=== PATIENT | female | born 1960 | race American Indian/Alaskan Native ===

== ENCOUNTER 2018-07-07 07:30 | Inpatient (IN) | payer BC, MEDICARE ==
[2018-06-04 08:49] VITALS: BMI 50.5
[2018-07-07] MEDS ORDERED: Bupivacaine Liposomal Inj 20 ml INFIL ONE (09:31)
[2018-07-07] MEDS ORDERED: ceFAZolin 1 gm in NS 2 GM/200 ML BAG IVPB ONE (09:38)
[2018-07-07] MEDS ORDERED: Midazolam 2 MG/2 ML VIAL ONE (10:09)
[2018-07-07] MEDS ORDERED: Propofol 10 mg/ml Inj (20 ML) ONE (10:09)
[2018-07-07] MEDS ORDERED: Succinylcholine Chloride 20 mg/ml Syr (5 ml) IV ONE (10:10)
[2018-07-07] MEDS ORDERED: Rocuronium 10 mg/ml (10 ml) ONE ×2 (10:44→13:07)
[2018-07-07] MEDS ORDERED: Sodium Chloride 0.9% 60 ML IV ONE (10:54)
[2018-07-07] MEDS ORDERED: Phenylephrine 10 mg/ml Inj ONE (11:03)
[2018-07-07] MEDS: Bacitracin 150,000 UNIT in Sodium Chloride 0.9% Irrig 3,000 ML IR SCH ×3 (11:15→12:23)
[2018-07-07] MEDS ORDERED: Labetalol 5mg/ml (4ml) ONE (11:25)
[2018-07-07 12:15] LABS: FLUID TYPE SYNOVIAL FLUID
[2018-07-07] MEDS ORDERED: Neostigmine Methylsulfate 3mg/3ml Syringe IV ONE ×2 (13:44→14:12)
[2018-07-07 13:52] LABS: SF GROSS APPEARANCE BLOODY (CLEAR)
[2018-07-07 13:53] LABS: SYNOVIAL FLUID MONO/MACROPHAGE 4 % (0-0)
[2018-07-07] MEDS ORDERED: Sodium Chloride 0.9% 1,000 ML IV SCH (14:30)
[2018-07-07] MEDS ORDERED: HYDROmorphone 1 mg/ml ISec IVP PRN (14:30)
[2018-07-07] MEDS: HYDROmorphone 0.5 mg/0.5 ml ISec IVP PRN ×2 (14:45→15:00)
--- NOTE | 2018-07-07 14:46 | PCM.SURG1 ---
Surgeon's Initial Post Op Note - Surgeon's Notes Surgeon: Otilia Renteria MD Clerical Car Checker: Alexis Ferrari PA-C Type of Anesthesia: General Endo Anesthesia Administered By: Dr. Payton Pre-Operative Diagnosis: right knee DJD Operative Findings: tourniquet 135@300mmHg. +DP/PT pulses pre and post op Post-Operative Diagnosis: same Operation Performed: right total knee replacement. synovetomy Specimen/Specimens Removed: synovium. synovial fluid Estimated Blood Loss: EBL {In ML}: 100 Blood Products Given: N/A Drains Used: Hemovac Post-Op Condition: Fair Date of Surgery/Procedure: 07/07/18 Time of Surgery/Procedure: 14:46
[2018-07-07] MEDS ORDERED: Bupivacaine 0.25% 20 ML INJ IJ ONE (14:56)
--- NOTE | 2018-07-07 15:46 | PCM.ANESB3 ---
Femoral Nerve Block - Femoral Nerve Block Date of Procedure: 07/07/18 Anesthesiologist: alana Pre-Procedure Diagnosis: right knee total replacement Post-Procedure Diagnosis: same Procedure Performed: Femoral Nerve Block Right - Procedure Femoral Nerve Block: The procedure was explained to the patient that it is for the post-operative pain management. Consent was obtained after a thorough discussion with the patient regarding the benefits and possible complications of local anesthetic block of the femoral nerve at the inguinal crease area. The patient was brought to the operating room and standard monitors were applied. Time-out was held with the circulating nurse to confirm the correct surgery and the appropriate block. After applying oxygen by nasal cannula and administering IV Sedation, patient was placed in supine position with fully extended lower extremities and the __right groin exposed. The femoral artery was then carefully palpated. The ultrasound transducer was then applied to this area in the transverse plane and the femoral nerve was visualized lateral to the femoral artery and underneath the fascia iliaca. After thorough identification, the inguinal crease area was prepped with Betadine solution three times and 1 % Lidocaine was injected subcutaneously for topical anesthesia. At this point, a #22 gauge Stimuplex 2-inch needle was inserted immediately lateral to the femoral artery pulse at the inguinal crease and advanced perpendicularly. The needle was inserted to the ultrasound transducer in-plane towards the femoral nerve in a [id number] direction. Needle advancement was performed carefully under direct ultrasound visualization. Nerve stimulator was used and twitch of the quadriceps muscle was obtained at current of __0.5___MA. After negative aspiration, __5___cc of _0.25____% __Bupivacaine was injected and this was followed with _15 cc of ___0.25____ % ___Bupivacaine . Under ultrasound guidance the local anesthetics were observed spreading below fascia iliaca and around the femoral nerve. The needle was removed intact and sterile dressing was applied. The patient had stable vital signs, was conscious and in no apparent distress. The patient tolerated the femoral nerve block well with stable vital signs and was prepared for subsequent surgery.
--- NOTE | 2018-07-07 16:15 | RAD ---
Indication: pt in pacu s/p TKR Comparison: Bilateral knee radiographs performed 05/05/18 Two views, right knee radiographs Findings: The patient is status post right knee total arthroplasty. Alignment appears satisfactory. Soft tissue swelling, subcutaneous emphysema, drainage catheter, and surgical esteban compatible with recent postoperative history Impression: Status post right arthroplasty as above.
--- NOTE | 2018-07-07 17:01 | RAD ---
Indication: repeat lateral Comparison: Right knee radiographs performed earlier the same day. Right knee radiographs Findings: The patient is status post right knee total arthroplasty. Alignment appears satisfactory. Soft tissue swelling, subcutaneous emphysema, drainage catheter, and surgical esteban compatible with recent postoperative history Impression: Status post right arthroplasty as above.
[2018-07-07 17:38] VITALS: RESP 20
--- NOTE | 2018-07-07 18:21 | CT ---
Date of service: 07/07/2018 PROCEDURE: CT of the right knee without contrast HISTORY: right knee: s/p TKR COMPARISON: Comparison is made with the previous x-ray done on the same day. TECHNIQUE: Axial and reformatted coronal and sagittal CT images of the right knee were obtained without contrast administration. 3D reformatted images were also obtained. FINDINGS: The patient is status post total right knee replacement. The hardware are seen at appropriate position. Postsurgical changes are noted. There is small amount of air around the right knee and proximal right tibia likely represent postsurgical changes. No evidence of acute fracture. No evidence of dislocation. No evidence of fluid collection or joint effusion. IMPRESSION: Status post total right knee replacement.
[2018-07-07 20:14] LABS: HEMOGLOBIN 10.6 g/dL (11.0-16.0); MEAN CELL VOLUME 88.7 fL (81.0-99.0); MEAN CORPUSCULAR HEMOGLOBIN 28.5 pg (27.0-31.0); MEAN CORPUSCULAR HGB CONC 32.1 g/dL (33.0-37.0); MEAN PLATELET VOLUME 10.1 fL (7.2-11.7); RBC 3.73 Mil/uL (3.80-5.20); RED CELL DISTRIBUTION WIDTH 14.5 % (11.5-14.5); WHITE BLOOD COUNT 15.4 K/uL (4.8-10.8)
[2018-07-07] MEDS ORDERED: ceFAZolin IV 2 gm in Dextrose 2 GM/50 ML BAG IVPB SCH (20:30)
--- NOTE | 2018-07-07 21:40 | CP.PCM.CON ---
Past Patient History - Past Medical History & Family History Past Medical History?: Yes - Past Social History Smoking Status: Never Smoked - CARDIAC Hx Cardiac Disorders: Yes Hx Hypercholesterolemia: Yes Hx Hypertension: Yes - PULMONARY Hx Respiratory Disorders: Yes Hx Sleep Apnea: Yes (CPAP) - NEUROLOGICAL Hx Neurological Disorder: Yes Other/Comment: HX: FREQUENT HEADACHES - HEENT Hx HEENT Problems: No - RENAL Hx Chronic Kidney Disease: No - ENDOCRINE/METABOLIC Hx Endocrine Disorders: No - HEMATOLOGICAL/ONCOLOGICAL Hx Blood Disorders: No - INTEGUMENTARY Hx Dermatological Problems: Yes Other/Comment: HX: CYST ON RIGHT WRIST - MUSCULOSKELETAL/RHEUMATOLOGICAL Hx Musculoskeletal Disorders: Yes Hx Back Pain: Yes Hx Degenerative Joint Disease: Yes Hx Falls: Yes Hx Osteoarthritis: Yes Hx Osteoporosis: Yes Other/Comment: HX: CARPAL TUNNEL BILAT. - GASTROINTESTINAL Hx Gastrointestinal Disorders: Yes - GENITOURINARY/GYNECOLOGICAL Hx Genitourinary Disorders: Yes Other/Comment: HX: URINARY FREQUENCY. HX: FIBROID UTERUS - PSYCHIATRIC Hx Psychophysiologic Disorder: Yes Hx Anxiety: Yes (.) Hx Substance Use: No - SURGICAL HISTORY Hx Surgeries: Yes Hx Hysterectomy: Yes (PARTIAL HYSTERECTOMY) Other/Comment: HX: CYST REMOVED RIGHT WRIST - ANESTHESIA Hx Anesthesia: Yes Hx Malignant Hyperthermia: No Has any member of the family had a problem w/ anesthesia?: No Meds Allergies/Adverse Reactions: Allergies Allergy/AdvReac Type Severity Reaction Status Date / Time No Known Allergies Allergy Verified 06/04/18 08:49 - Medications Medications: Current Medications Acetaminophen (Tylenol 325mg Tab) 650 mg PO Q4 PRN PRN Reason: Fever 101 degrees fahrenheit Docusate Sodium (Colace) 100 mg PO BID [facility] Last Admin: 07/07/18 19:24 Dose: 100 mg Enoxaparin Sodium (Lovenox) 40 mg SC Q24H [facility] Ergocalciferol (Drisdol 50,000 Intl Units Cap) 1 cap PO QWK [facility] Famotidine (Pepcid) 20 mg PO BID [facility] Last Admin: 07/07/18 19:00 Dose: 20 mg Ferrous Sulfate (Feosol) 325 mg PO DAILY [facility] Hydromorphone HCl (Dilaudid) 1 mg IVP Q4H PRN PRN Reason: Pain, severe (8-10) Lactated Ringer's (Lactated Ringer's) 1,000 mls @ 100 mls/hr IV .Q10H [facility] Sodium Chloride (Sodium Chloride 0.9%) 1,000 mls @ 80 mls/hr IV .[id number] [facility] Stop: 07/08/18 15:29 Cefazolin Sodium 2 gm/ Sodium (Chloride) 100 mls @ 100 mls/hr IVPB Q8H [facility]; Protocol Losartan Potassium (Cozaar) 100 mg PO DAILY [facility] Multivitamins (Hexavitamin) 1 tab PO DAILY [facility] Ondansetron HCl (Zofran Inj) 4 mg IVP Q6H PRN PRN Reason: Nausea/Vomiting Oxybutynin Chloride (Ditropan Xl) 10 mg PO DAILY [facility] Oxycodone/Acetaminophen (Percocet 5/325 Mg Tab) 2 tab PO Q4H PRN PRN Reason: Pain, severe (8-10) Stop: 07/10/18 14:31 Pneumococcal Polyvalent Vaccine (Pneumovax 23 Vaccine) 0.5 ml IM .ONCE ONE Stop: 07/08/18 10:01 Vitamin B Complex/Folic Acid (Berroca) 1 tab PO DAILY [facility] Results - Vital Signs Recent Vital Signs: Last Vital Signs Temp 97.6 F 07/07/18 17:37 Pulse 90 07/07/18 17:37 Resp 20 07/07/18 17:37 BP 152/80 H 07/07/18 17:37 Pulse Ox 100 07/07/18 17:37 - Labs Result Diagrams: 07/07/18 20:10 Labs: Laboratory Results - last 24 hr 07/07/18 07/07/18 07/07/18 09:19 12:12 20:10 WBC 15.4 H D RBC 3.73 L Hgb 10.6 L Hct 33.1 L MCV 88.7 MCH 28.5 MCHC 32.1 L RDW 14.5 Plt Count 327 MPV 10.1 Fluid Type Synovial fluid Synovial WBC 3396.0 H Synovial RBC 7489678.0 H Synovial Neutrophils 47.0 H Synovial Lymphocytes 49.0 H Synov Monos/Macrophage 4 H Synovial Fluid Comment TEST NOT PERFORMED Blood Type A POSITIVE Antibody Screen Negative
[2018-07-07] MEDS: ceFAZolin 2 GM in Sodium Chloride 0.9% 100 ML IVPB SCH (22:10)
[2018-07-08] MEDS: Oxycodone/Acetaminophen 5/325 mg Tab PO PRN ×5 (00:14→21:22)
[2018-07-08] MEDS: ceFAZolin 2 GM in Sodium Chloride 0.9% 100 ML IVPB SCH ×3 (04:41→21:15)
[2018-07-08] MEDS: Lactated Ringer's 1,000 ML IV SCH ×3 (04:55→07:54)
--- NOTE | 2018-07-08 06:21 | CON ---
DATE: 07/07/2018 CHIEF COMPLAINT: Osteoarthritis of right knee, medical management for hypertension. HISTORY OF PRESENT ILLNESS: This is a 58-year-old female, well known to me with a history of morbid obesity, hypertension, hyperlipidemia, osteoarthritis of bilateral knees and hips who is compliant with diet, medication, and followup. The patient has severe bilateral knee pain, difficulty walking. She has been seen by Orthopedics with no improvement initially with intra-articular steroids and then intra-articular Synvisc. The patient did not improve and finally she underwent right knee surgery. She is postop. She is in the bed. She has mild pain. She is complaining of some sore throat. No cough. No fever. No chills. No nausea, vomiting, or diarrhea. She denies any polyuria, polydipsia, or polyphagia. She denies any hematuria or pyuria. She denies any sneezing, itchy eyes, or itchy nose. She denies any chest pain, palpitation, weakness, or dizziness. She denies any history of vertigo. There is no history of trauma, fall, or loss of consciousness. No seizure like activity. PAST MEDICAL HISTORY: Hypertension, osteoarthritis, morbid obesity, overactive bladder, gastritis. CURRENT MEDICATIONS: At home, she is on Avapro, Zantac, Ditropan XL, Mobic, multivitamin, vitamin D, iron. SOCIAL HISTORY: Nonsmoker, non-EtOH user. PHYSICAL EXAMINATION: GENERAL: An elderly female, in no acute distress. VITAL SIGNS: Postop BP 152/80, pulse 90, respiratory rate 20, temperature 97.6. SKIN: Warm. Good turgor. No bruises. No purpura. No petechia. No ecchymosis. HEENT: Atraumatic and normocephalic. Negative PERRLA. Negative jaundice. Extraocular movements are intact. NECK: Supple. No JVD. No lymph node. No thyromegaly. No carotid bruit. CHEST WALL: Bilateral symmetrical expansion. No tenderness. No deformity. LUNGS: Bilaterally clear. No rales. No rhonchi. CARDIOVASCULAR SYSTEM: PMI not localized. S1 and S2 are regular. ABDOMEN: Soft and nontender. Bowel sounds are positive. RECTAL AND PELVIC: Unable to do because of the patient's position. EXTREMITIES: Right knee surgery postop. CENTRAL NERVOUS SYSTEM: Awake, alert, and oriented x3. Cranial nerves II through XII are normal. ASSESSMENT: 1. Osteoarthritis. 2. Hypertension. 3. Gastritis. 4. Hyperlipidemia. PLAN: Continue postop care. BP control. Monitor the patient. Chino Weaver MD
[2018-07-08 09:37] LABS: MEAN CORPUSCULAR HEMOGLOBIN 29.7 pg (27.0-31.0); MEAN PLATELET VOLUME 9.6 fL (7.2-11.7); RBC 3.38 Mil/uL (3.80-5.20); RED CELL DISTRIBUTION WIDTH 14.4 % (11.5-14.5); WHITE BLOOD COUNT 11.2 K/uL (4.8-10.8)
[2018-07-08 09:52] LABS: BLOOD UREA NITROGEN 8 mg/dL (7-17); CALCIUM 8.4 mg/dl (8.6-10.4); GFR NON-AFRICAN AMERICAN > 60
[2018-07-08] MEDS ORDERED: Pneumococcal 23-Valent Vaccine IM ONE (10:00)
[2018-07-08] MEDS: Oxybutynin XL 10 mg Tab PO SCH (10:03)
[2018-07-08] MEDS: Multiple Vitamins Tab PO SCH (10:04)
--- NOTE | 2018-07-08 11:13 | CP.PCM.PN ---
Subjective - Date & Time of Evaluation Date of Evaluation: 07/08/18 Time of Evaluation: 11:11 - Subjective Subjective: Patient states pain is well controlled. Denies CP/SOB/dizziness. tingling in toes resolved. Denies n/v Objective - Vital Signs/Intake and Output Vital Signs (last 24 hours): Temp Pulse Resp BP Pulse Ox 98.7 F 86 20 160/98 H 96 07/08/18 08:57 07/08/18 10:03 07/08/18 08:57 07/08/18 10:03 07/08/18 08:57 Intake and Output: 07/08/18 07/08/18 06:59 18:59 Intake Total 360 Output Total 360 Balance 0 - Medications Medications: Current Medications Acetaminophen (Tylenol 325mg Tab) 650 mg PO Q4 PRN PRN Reason: Fever 101 degrees fahrenheit Docusate Sodium (Colace) 100 mg PO BID [facility] Last Admin: 07/08/18 10:04 Dose: 100 mg Enoxaparin Sodium (Lovenox) 40 mg SC Q24H [facility] Ergocalciferol (Drisdol 50,000 Intl Units Cap) 1 cap PO QWK [facility] Famotidine (Pepcid) 20 mg PO BID [facility] Last Admin: 07/08/18 10:04 Dose: 20 mg Ferrous Sulfate (Feosol) 325 mg PO DAILY [facility] Last Admin: 07/08/18 10:04 Dose: 325 mg Hydromorphone HCl (Dilaudid) 1 mg IVP Q4H PRN PRN Reason: Pain, severe (8-10) Cefazolin Sodium 2 gm/ Sodium (Chloride) 100 mls @ 100 mls/hr IVPB Q8H [facility]; Protocol Last Admin: 07/08/18 04:41 Dose: 100 mls/hr Losartan Potassium (Cozaar) 100 mg PO DAILY [facility] Last Admin: 07/08/18 10:04 Dose: 100 mg Multivitamins (Hexavitamin) 1 tab PO DAILY [facility] Last Admin: 07/08/18 10:04 Dose: 1 tab Ondansetron HCl (Zofran Inj) 4 mg IVP Q6H PRN PRN Reason: Nausea/Vomiting Oxybutynin Chloride (Ditropan Xl) 10 mg PO DAILY [facility] Last Admin: 07/08/18 10:03 Dose: 10 mg Oxycodone/Acetaminophen (Percocet 5/325 Mg Tab) 2 tab PO Q4H PRN PRN Reason: Pain, severe (8-10) Stop: 07/10/18 14:31 Last Admin: 07/08/18 05:41 Dose: 2 tab Vitamin B Complex/Folic Acid (Berroca) 1 tab PO DAILY [facility] Last Admin: 07/08/18 10:03 Dose: 1 tab - Labs Labs: 07/08/18 09:30 07/08/18 09:30 - Extremities Exam Additional comments: +ROM ankle/toes, sensation intact, +DP/PT pulses calves soft NT neg homans hemovac 60 Assessment and Plan (1) Primary osteoarthritis of right knee Assessment & Plan: POD#1 s/p right TKR PT/OT VTE proph d/c planning labs in am monitor HTN d/w Dr. Pinzon, agrees with above Status: Acute (2) Morbid obesity with BMI of 50.0-59.9, adult Status: Acute (3) Hypertension Status: Acute
[2018-07-08] MEDS: Enoxaparin 40 mg Syringe SC SCH (13:46)
--- NOTE | 2018-07-08 21:54 | CP.PCM.PN ---
Subjective - Subjective Subjective: dictated Objective - Vital Signs/Intake and Output Vital Signs (last 24 hours): Temp Pulse Resp BP Pulse Ox 98.9 F 82 20 155/85 H 97 07/08/18 15:54 07/08/18 15:54 07/08/18 15:54 07/08/18 15:54 07/08/18 15:54 Intake and Output: 07/08/18 07/09/18 18:59 06:59 Intake Total 450 Output Total 25 Balance 425 - Medications Medications: Current Medications Acetaminophen (Tylenol 325mg Tab) 650 mg PO Q4 PRN PRN Reason: Fever 101 degrees fahrenheit Docusate Sodium (Colace) 100 mg PO BID [facility] Last Admin: 07/08/18 17:32 Dose: 100 mg Enoxaparin Sodium (Lovenox) 40 mg SC Q24H [facility] Last Admin: 07/08/18 13:46 Dose: 40 mg Ergocalciferol (Drisdol 50,000 Intl Units Cap) 1 cap PO QWK [facility] Famotidine (Pepcid) 20 mg PO BID [facility] Last Admin: 07/08/18 17:32 Dose: 20 mg Ferrous Sulfate (Feosol) 325 mg PO DAILY [facility] Last Admin: 07/08/18 10:04 Dose: 325 mg Hydromorphone HCl (Dilaudid) 1 mg IVP Q4H PRN PRN Reason: Pain, severe (8-10) Cefazolin Sodium 2 gm/ Sodium (Chloride) 100 mls @ 100 mls/hr IVPB Q8H [facility]; Protocol Last Admin: 07/08/18 21:15 Dose: 100 mls/hr Losartan Potassium (Cozaar) 100 mg PO DAILY [facility] Last Admin: 07/08/18 10:04 Dose: 100 mg Multivitamins (Hexavitamin) 1 tab PO DAILY [facility] Last Admin: 07/08/18 10:04 Dose: 1 tab Ondansetron HCl (Zofran Inj) 4 mg IVP Q6H PRN PRN Reason: Nausea/Vomiting Oxybutynin Chloride (Ditropan Xl) 10 mg PO DAILY [facility] Last Admin: 07/08/18 10:03 Dose: 10 mg Oxycodone/Acetaminophen (Percocet 5/325 Mg Tab) 2 tab PO Q4H PRN PRN Reason: Pain, severe (8-10) Stop: 07/10/18 14:31 Last Admin: 07/08/18 21:22 Dose: 2 tab Vitamin B Complex/Folic Acid (Berroca) 1 tab PO DAILY [facility] Last Admin: 07/08/18 10:03 Dose: 1 tab - Labs Labs: 07/08/18 09:30 07/08/18 09:30
[2018-07-09] MEDS: Oxycodone/Acetaminophen 5/325 mg Tab PO PRN ×3 (04:59→14:28)
[2018-07-09] MEDS: ceFAZolin 2 GM in Sodium Chloride 0.9% 100 ML IVPB SCH ×2 (05:00→12:50)
[2018-07-09 07:54] LABS: HEMOGLOBIN 9.7 g/dL (11.0-16.0); MEAN CELL VOLUME 89.5 fL (81.0-99.0); MEAN CORPUSCULAR HGB CONC 33.5 g/dL (33.0-37.0); MEAN PLATELET VOLUME 8.8 fL (7.2-11.7); RBC 3.25 Mil/uL (3.80-5.20); RED CELL DISTRIBUTION WIDTH 14.3 % (11.5-14.5); WHITE BLOOD COUNT 11.3 K/uL (4.8-10.8)
[2018-07-09 08:07] VITALS: O2SAT 98
[2018-07-09 08:42] LABS: BLOOD UREA NITROGEN 6 mg/dL (7-17); CALCIUM 8.5 mg/dl (8.6-10.4); GFR NON-AFRICAN AMERICAN > 60
--- NOTE | 2018-07-09 10:29 | CP.PCM.PN ---
Subjective - Date & Time of Evaluation Date of Evaluation: 07/09/18 Time of Evaluation: 10:28 - Subjective Subjective: Patient states pain is controlled, denies CP/SOB/dizziness/numbness/tingling. Objective - Vital Signs/Intake and Output Vital Signs (last 24 hours): Temp Pulse Resp BP Pulse Ox 98.8 F 89 20 138/81 98 07/09/18 07:00 07/09/18 07:00 07/09/18 07:00 07/09/18 07:00 07/09/18 07:00 Intake and Output: 07/09/18 07/09/18 06:59 18:59 Intake Total 220 Balance 220 - Medications Medications: Current Medications Acetaminophen (Tylenol 325mg Tab) 650 mg PO Q4 PRN PRN Reason: Fever 101 degrees fahrenheit Docusate Sodium (Colace) 100 mg PO BID [facility] Last Admin: 07/08/18 17:32 Dose: 100 mg Enoxaparin Sodium (Lovenox) 40 mg SC Q24H [facility] Last Admin: 07/08/18 13:46 Dose: 40 mg Ergocalciferol (Drisdol 50,000 Intl Units Cap) 1 cap PO QWK [facility] Famotidine (Pepcid) 20 mg PO BID [facility] Last Admin: 07/08/18 17:32 Dose: 20 mg Ferrous Sulfate (Feosol) 325 mg PO DAILY [facility] Last Admin: 07/08/18 10:04 Dose: 325 mg Hydromorphone HCl (Dilaudid) 1 mg IVP Q4H PRN PRN Reason: Pain, severe (8-10) Cefazolin Sodium 2 gm/ Sodium (Chloride) 100 mls @ 100 mls/hr IVPB Q8H [facility]; Protocol Last Admin: 07/09/18 05:00 Dose: 100 mls/hr Losartan Potassium (Cozaar) 100 mg PO DAILY [facility] Last Admin: 07/08/18 10:04 Dose: 100 mg Multivitamins (Hexavitamin) 1 tab PO DAILY [facility] Last Admin: 07/08/18 10:04 Dose: 1 tab Ondansetron HCl (Zofran Inj) 4 mg IVP Q6H PRN PRN Reason: Nausea/Vomiting Oxybutynin Chloride (Ditropan Xl) 10 mg PO DAILY [facility] Last Admin: 07/08/18 10:03 Dose: 10 mg Oxycodone/Acetaminophen (Percocet 5/325 Mg Tab) 2 tab PO Q4H PRN PRN Reason: Pain, severe (8-10) Stop: 07/10/18 14:31 Last Admin: 07/09/18 09:33 Dose: 2 tab Vitamin B Complex/Folic Acid (Berroca) 1 tab PO DAILY [facility] Last Admin: 07/08/18 10:03 Dose: 1 tab - Labs Labs: 07/09/18 07:51 07/09/18 07:51 - Extremities Exam Additional comments: Right knee: drain pulled, incision intact, dry, no erythema, +ROM ankle/toes, calves soft NT neg homans Assessment and Plan (1) Primary osteoarthritis of right knee Assessment & Plan: POD#2 s/p right TKR for TCU transfer f/u vitamin D monitor h/h cont VTE proph cont PT/OT NWB RLE d/w Dr. Pinzon, agrees wtih above Status: Acute (2) Morbid obesity with BMI of 50.0-59.9, adult Status: Acute (3) Hypertension Status: Acute
[2018-07-09] MEDS: Multiple Vitamins Tab PO SCH (11:38)
[2018-07-09] MEDS: Oxybutynin XL 10 mg Tab PO SCH (11:43)
[2018-07-09] MEDS ORDERED: Influenza Vaccine 60 MCG/0.5 ML SYR (3 yr & up) IM ONE (12:00)
[2018-07-09] MEDS: Enoxaparin 40 mg Syringe SC SCH (14:08)
[2018-07-09 16:42] VITALS: BP 129/80; PULSE 92; TEMP 98.2
--- NOTE | 2018-07-09 16:56 | CP.PCM.PN ---
Subjective - Date & Time of Evaluation Date of Evaluation: 07/09/18 Time of Evaluation: 11:00 - Subjective Subjective: alert and orientedx3, out of bed on the chair, denies acute pain. Objective - Vital Signs/Intake and Output Vital Signs (last 24 hours): Temp Pulse Resp BP Pulse Ox 98.2 F 92 H 20 129/80 98 07/09/18 15:30 07/09/18 15:30 07/09/18 15:30 07/09/18 15:30 07/09/18 15:30 Intake and Output: 07/09/18 07/09/18 06:59 18:59 Intake Total 220 Balance 220 - Medications Medications: Current Medications Acetaminophen (Tylenol 325mg Tab) 650 mg PO Q4 PRN PRN Reason: Fever 101 degrees fahrenheit Docusate Sodium (Colace) 100 mg PO BID [facility] Last Admin: 07/09/18 11:38 Dose: 100 mg Enoxaparin Sodium (Lovenox) 40 mg SC Q24H [facility] Last Admin: 07/09/18 14:08 Dose: 40 mg Ergocalciferol (Drisdol 50,000 Intl Units Cap) 1 cap PO QWK [facility] Famotidine (Pepcid) 20 mg PO BID [facility] Last Admin: 07/09/18 11:38 Dose: 20 mg Ferrous Sulfate (Feosol) 325 mg PO DAILY [facility] Last Admin: 07/09/18 11:42 Dose: 325 mg Hydromorphone HCl (Dilaudid) 1 mg IVP Q4H PRN PRN Reason: Pain, severe (8-10) Last Admin: 07/09/18 11:34 Dose: 1 mg Cefazolin Sodium 2 gm/ Sodium (Chloride) 100 mls @ 100 mls/hr IVPB Q8H [facility]; Protocol Last Admin: 07/09/18 12:50 Dose: 100 mls/hr Losartan Potassium (Cozaar) 100 mg PO DAILY [facility] Last Admin: 07/09/18 11:38 Dose: 100 mg Multivitamins (Hexavitamin) 1 tab PO DAILY [facility] Last Admin: 07/09/18 11:38 Dose: 1 tab Ondansetron HCl (Zofran Inj) 4 mg IVP Q6H PRN PRN Reason: Nausea/Vomiting Oxybutynin Chloride (Ditropan Xl) 10 mg PO DAILY [facility] Last Admin: 07/09/18 11:43 Dose: 10 mg Oxycodone/Acetaminophen (Percocet 5/325 Mg Tab) 2 tab PO Q4H PRN PRN Reason: Pain, severe (8-10) Stop: 07/10/18 14:31 Last Admin: 07/09/18 14:28 Dose: 2 tab Vitamin B Complex/Folic Acid (Berroca) 1 tab PO DAILY [facility] Last Admin: 07/09/18 11:42 Dose: 1 tab - Labs Labs: 07/09/18 07:51 07/09/18 07:51 Assessment and Plan - Assessment and Plan (Free Text) Assessment: Patient is seen and examined, post RKR, out of bed, denies acute pain. Discussed with ortho PA, plan to discharge to TCU today.
--- NOTE | 2018-07-09 23:51 | CP.PCM.PN ---
Subjective - Subjective Subjective: dictated Objective - Vital Signs/Intake and Output Vital Signs (last 24 hours): Temp Pulse Resp BP Pulse Ox 98.2 F 92 H 20 129/80 98 07/09/18 15:30 07/09/18 15:30 07/09/18 15:30 07/09/18 15:30 07/09/18 15:30 - Labs Labs: 07/09/18 07:51 07/09/18 07:51
--- NOTE | 2018-07-10 01:31 | DS ---
DISCHARGE DIAGNOSES: 1. Right knee arthritis, status post right total knee replacement. 2. Hypertension. 3. Anemia due to intraoperative loss. HISTORY OF PRESENT ILLNESS AND HOSPITAL COURSE: This is 58-year-old female who came in because of right knee pain and right total knee replacement. Postoperatively, she did well and she is for discharge with outpatient followup. Condition upon discharge is stable. PHYSICAL EXAMINATION: VITAL SIGNS: Blood pressure 139/80, pulse 92, respiratory rate 20, and temperature 98.2. LABORATORY DATA: WBC 11.3, hemoglobin 9.7, hematocrit 29.1, and platelets 306. Chemistry: Sodium 134, potassium 4.1, chloride 97, bicarb 30, BUN 6, and creatinine 0.8. CONDITION UPON DISCHARGE: Stable. Chino Weaver MD [facility] # [id number]
--- NOTE | 2018-07-10 02:42 | PN ---
DATE: 07/08/2018 SUBJECTIVE: The patient has right knee pain. She is postop. She is afebrile. She is on physiotherapy and she is doing weightbearing. She is for transitional care unit transfer. PHYSICAL EXAMINATION: VITAL SIGNS: Blood pressure 137/81, pulse 94, respiratory rate 20, and temperature 98.8. LUNGS: Clear. CARDIOVASCULAR SYSTEM: S1 and S2, regular. ABDOMEN: Soft. DISCHARGE DIAGNOSIS: Right knee arthritis, status post replacement. Chino Weaver MD
[2018-07-14] MEDS ORDERED: Ergocalciferol 50,000 Intl Units Cap PO SCH (10:00)
--- NOTE | 2018-07-21 07:33 | OP ---
PROCEDURE DATE: 07/07/2018 PREOPERATIVE DIAGNOSES: Right knee: 1. Degenerative joint disease. 2. Varus alignment. 3. Synovitis. 4. Five-degree flexion contracture. POSTOPERATIVE DIAGNOSES: Right knee, 1. Degenerative joint disease. 2. Varus alignment. 3. Synovitis. 4. Five-degree flexion contracture. PROCEDURES: Right knee open: 1. Total knee arthroplasty. 2. Open synovectomy and biopsy. SURGEON: Bran Pinzon MD SHEEP FARMER: Ismael Del Toro III, MD SECOND ASSISTANTS: Inna Ferrari PA-C and GARIMA Chapa JUSTIFICATION FOR PAROLE DIRECTOR: Dr. Ismael Del Toro III is a board certified joint arthroplasty specialist whose skilled surgical assistance was an absolute necessity for successful completion of the procedure as he provided skilled surgical assistance with positioning of the patient, positioning of the extremity, management of surgical jesus, retraction of neurovascular structures, preparation of distal femur and distal femoral cuts, preparation of proximal tibial and proximal tibial cuts, patellar preparation, proper cement technique, placement of bone cement at distal femur proximal tibia and patella, placement of final implants including distal femur cemented implant, proximal tibia cemented implant, polyethylene spacer, cemented patellar button, open synovectomy and acquisition of biopsy, wound closure, soft tissue balancing. Dr. Ismael Del Toro III was present for the entire case who was an absolute necessity for successful completion of the procedure. ANESTHESIA: General endotracheal anesthesia with a postop regional nerve block placed by anesthesia staff in PACU. TOURNIQUET TIME: 125 minutes at 300 mmHg. SPECIMENS: Synovium and synovial fluid, sent to Pathology. ESTIMATED BLOOD LOSS: 100 mL. DRAINS: Hemovac drain x1. COMPLICATIONS: None. DISPOSITION: The patient was extubated and transferred to PACU in stable condition and tolerated the procedure well. IMPLANTS: Medacta GMK primary size-1 cemented resurfacing patella, size-2 Sphere cemented distal femoral components, size-2 cemented tibial tray with a 11-mm x 30-mm length extension stem, size-2 a 11-mm high Sphere polyethelene spacer. Biomet antibiotic bone cement x2. INDICATIONS FOR SURGERY: The patient is a 58 year-old female with no significant past medical history who presented to the office for the first time under my care on 03/13/2016 with bilateral knee pain. We started conservative treatments including physical therapy, bracing, custom medial off-bomb loader bracing, anti-inflammatory medication, weight loss and diet modification, multiple cortisone injections to the right knee including 03/13/2016, 04/07/2016 followed by Orthovisc hyaluronic acid series from 05/05/2016 to 05/26/2016 as four injections in total to the right knee and the left knee. At her initial treatment, she had significant improvement in pain and was happy with her progress, and she continued to loss weight. She continued to have progressive pain that returned after six months after the Orthovisc series and underwent cortisone injections on 09/29/2016, 07/07/2017, and then more frequently 10/29/2017, 01/19/2018, 02/22/2018 and 04/19/2018, all cortisone mixture injections to the right knee with a second Orthovisc hyaluronic injection series after 09/2016 as four injections again. After failing conservative treatment under my care over the past two years and displaying good compliance with conservative treatments, recommendations as well as her attempt at weight loss and diet modification with an overall 50-pound weight loss, she was finally indicated for right knee surgery. Her x-rays under my treatments over the past two years showed significant progressive degenerative wear of the knee globally much worst at the medial side with overall varus alignment and near [id number] contact medial compartment. She was indicated for a right knee total knee arthroplasty and all related indicated procedures including open synovectomy. The risks, benefits, and alternatives to the procedure were discussed at length with the patient with the risks including, but not limited to infection, neurovascular damage, need for further surgery, failure of implant, need for revision surgery, periprosthetic and iatrogenic fracture, failure of cement and loosening, development of blood clots including DVT and PE, development of chronic pain and disability, stiffness, inability to return to presurgery level of activity and occupation, unsatisfactory results, anesthesia reactions including , cardiopulmonary collapse in the perioperative period. After answering all of her questions, she stated that she understood the risks and wished to proceed with the surgery. She was referred to her primary care physician, Dr. Chino Weaver, for preadmission testing and preoperative medical evaluation and clearance, and the procedure was scheduled at [facility] on 07/07/2018. She watched surgical animation videos and diagnosis animation videos at length and stated that she had a good understanding of the diagnosis as well as the procedure to be done. I reviewed at length with her the postop rehabilitation protocol, and she stated that she had a good understanding of the rehabilitation protocol and knew that compliance with rehab protocol will maximize the chance of her having a successful outcome after surgery. We discussed DVT prophylaxis after surgery and with her level of obesity, the need for 30 mg of Lovenox twice daily injections for a period of four weeks starting postoperative day #1 as long as there was no medical contraindication. PROCEDURE IN DETAIL: The patient was identified in the preoperative holding area, and the right knee was marked for surgery. Once again as described above, the risks, benefits, and alternatives to the procedure were discussed at length with the patient, and informed consent was obtained. After brief discussion with anesthesia staff, perioperative IV antibiotics were administered. The patient was brought into the operating room and placed on a well-padded operating room table with all bony prominences and superficial neurovascular structures well padded. An initial time-out was done with the surgeon, anesthesia staff, OR staff; all in agreement with the patient, procedure being done and the extremity to be operated on. General anesthesia was administered without difficulty or complications. An examination under anesthesia was then carried out. Range of motion from 5 degrees to 110 degrees with a mechanical stop and flexion and extension lacking 5 degrees of extension. No evidence of instability, overall varus alignment, significant crepitance throughout range of motion. Patella with normal tracking and no evidence of subluxation, J-sign or instability. Skin intact, no swelling, no warmth, no erythema. CONTINUATION OF PROCEDURE: A tourniquet was placed high on the right thigh. The right lower extremity was prepped and draped in a standard sterile fashion. Final time-out was done with the surgeon, anesthesia staff, and OR staff; all in agreement with the patient, procedure being done and the extremity to be operated on. The right lower extremity was exsanguinated, and tourniquet was inflated for a total tourniquet time of 125 minutes at 300 mmHg. A medial parapatellar approach was carried out starting at the level of the skin, starting three fingerbreadths above the level of the superior pole of the patella extending to the tibial tuberosity. An incision was made to skin down to subcutaneous tissue while maintaining good hemostasis down to the level of the fascia. An arthrotomy was then carried out, starting at the medial aspect of the quadriceps tendon extending distally around the superior pole of the patella around the mid pole of the patella to the inferior pole of the patella along the medial aspect of the patella tendon down to the tibial tuberosity. There was significant synovial fluid found that appeared to be red tinged, and therefore synovial fluid was sent for analysis both for microbiology as well as cell count which were considered negative with intraoperative results. There was significant synovitis throughout the anterior and mediolateral aspects of the knee joint, and an open synovectomy was carried out while maintaining good hemostasis and was of absolute medical necessity. The open synovectomy required significant surgical time beyond what is considered usual and customary for removal of sot tissue and surgical exposure during total knee arthroplasty. Once the open synovectomy was carried out with satisfaction, the custom distal femoral cutting block was then brought into the surgical field. I will continue the rest of the procedure dictation as . Bran Pinzon MD
== END 2018-07-09 16:55 | DRG 470 ==
LOC: C.9S 07:33 → C.6T 17:00
PROVIDERS: ADMIT Student in an Organized Health Care Education/Training Program; ATTEND Student in an Organized Health Care Education/Training Program
PROC: 0SRC0J9 Replacement of Right Knee Joint with Synthetic Substitute, Cemented, Open Approach (ICD-10-PCS; principal; 2018-07-07 09:00)
DX: M17.11 Unilateral primary osteoarthritis, right knee (principal); D62 Acute posthemorrhagic anemia; Z68.43 Body mass index [BMI] 50.0-59.9, adult; M21.161 Varus deformity, not elsewhere classified, right knee; M65.9 Synovitis and tenosynovitis, unspecified; M24.561 Contracture, right knee; E66.01 Morbid (severe) obesity due to excess calories; G47.30 Sleep apnea, unspecified; I10 Essential (primary) hypertension; M81.0 Age-related osteoporosis without current pathological fracture; M16.0 Bilateral primary osteoarthritis of hip; E78.00 Pure hypercholesterolemia, unspecified; F41.9 Anxiety disorder, unspecified; K29.70 Gastritis, unspecified, without bleeding